=== PATIENT | female | born 1930 | race Hispanic/Latino ===

== ENCOUNTER 2016-11-01 10:27 | Outpatient (CLI) | payer MEDICARE ==
--- NOTE | 2016-11-01 14:43 | Mammography Report ---
BONE DEXA:11/01/16 10:27:00 CLINICAL: Postmenopausal. No comparison. TECHNIQUE: Two site bone DEXA performed on an Hologic scanner. FINDINGS: The average BMD of the lumbar spine L1-L4 is 0.901g/cm squared with a T-score of -1.3 and a Z-score of 01 0.5. The average BMD of the left hip is 0.807g/cm squared with a T-score of -1.1 and a Z-score of +1.2. IMPRESSION: WHO classification: Osteopenia with increased fracture risk based on both spine and left hip measurements. RECOMMENDATION: Clinical correlation and routine screening. DEFINITIONS: BMD = Bone Mineral Density T-score = BMD related to mean peak bone mass of young adult (mean expressed in Standard Deviation) Z-score = Age matched BMD expressed in SD World Health Organization (WHO) Diagnostic Criteria Normal T-score > -1 SD Osteopenia T-score between -1 and -2.4 SD Osteoporosis T-score -2.5 SD or below NOTE: BMD is not the only risk factor for fracture. One should also consider factors such as the patient's age, risk of falling, previous osteoporotic fracture, family history of osteoporotic fractures, current smoker, and low body weight. Z-scores are not calculated if >80 years of age.
== END 2016-11-01 10:28 | disposition home or self-care (01) ==
LOC: SPVWC 10:27
PROVIDERS: ATTEND Family Medicine
DX: M85.88 Other specified disorders of bone density and structure, other site (principal); Z78.0 Asymptomatic menopausal state
CPT/HCPCS: 77080

== ENCOUNTER 2019-01-16 11:07 | Outpatient (CLI) | payer MEDICARE ==
--- NOTE | 2019-01-16 15:31 | Mammography Report ---
Bone densitometry. History: AT RISK FOR OSTEOPOROSIS/FALL. Postmenopausal Procedure: Patient scanned with an Hologic DEXA System. Examination was performed of the lumbar spi ne left hip. Comparison: 11/01/2016. Findings: The BMD of the lumbar spine is 0.953 gm/cm2 with a T-score of -1.1. Percent change from previous ex am is +1.9%. The BMD of the total left hip is 0.804 gm/cm2 with a T-score of -1.1. Percent change from previous ex am is -0.3%. Impression: Findings are consistent with osteopenia of the lumbar spine and left hip. Fracture risk i s increased. Signer Name: Maury Bloom MD Signed: 01/16/2019 3:26 PM Workstation Name: [id number]
--- NOTE | 2019-01-16 16:36 | XRay Report ---
CERVICAL SPINE, 3 VIEWS INDICATION: Neck pain. COMPARISON: None. IMPRESSION: Mild osteopenia is evident. There is normal height and alignment of the cervical vertebr al bodies. No evidence for fracture or bone lesion. Disc space height appears preserved. There is mod erate to severe facet arthropathy throughout the cervical region. LUMBOSACRAL SPINE, 3 VIEWS INDICATION: LEG NUMBNESS/LUMBAR PAIN. COMPARISON: None. IMPRESSION: Mild osteopenia is evident. No evidence for fracture, subluxation or bone lesion. There is mild dextrocurvature on the AP view. 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 Signer Name: Amari Segal Jr, MD Signed: 01/16/2019 4:32 PM Workstation Name: [id number]
== END 2019-01-16 11:08 | disposition home or self-care (01) ==
LOC: SPVWC 11:07
PROVIDERS: ATTEND Family Medicine
DX: M51.37 Other intervertebral disc degeneration, lumbosacral region (principal); M43.8X7 Other specified deforming dorsopathies, lumbosacral region; M85.88 Other specified disorders of bone density and structure, other site; Z78.0 Asymptomatic menopausal state; Z91.89 Other specified personal risk factors, not elsewhere classified; W19.XXXA Unspecified fall, initial encounter
CPT/HCPCS: 72040; 72100; 77080

== ENCOUNTER 2021-11-15 12:59 | Outpatient (CLI) | payer MEDICARE ==
--- NOTE | 2021-11-15 17:09 | Mammography Report ---
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 89 years Female COMPARISON: None available. LUMBAR SPINE (L1-L4): - Bone mineral density (BMD) = 0.952 g/cm2. - T-score = -1.2 Change (%) since most recent prior (if available): None available. FEMORAL NECKS: - Neck mean Bone mineral density (BMD) = 0.649 g/cm2. - T-score = -1.8 Change (%) since most recent prior (if available): None available. IMPRESSION: 1. WHO Classification: Osteopenia. Fracture Risk: Increased. BMD Reporting Guidelines (ISCD, 2015) BMD Reporting in Postmenopausal Women and in Men Age 50 and Older - T-scores are preferred. - The WHO densitometric classification is applicable. BMD Reporting in Females Prior to Menopause and in Males Younger Than Age 50 - Z-scores, not T-scores, are preferred. This is particularly important in children. - A Z-score of -2.0 or lower is defined as below the expected range for age, and a Z-score above -2.0 is within the expected range for age. - Osteoporosis cannot be diagnosed in men under age 50 on the basis of BMD alone. - The WHO diagnostic criteria may be applied to women in the menopausal transition. http://www.iscd.org/official-positions/2733-kxsx-hdnlualc-positions-adult/ Signer Name: Dionisio Koroma MD Signed: 11/15/2021 5:05 PM Workstation Name: [id number]
== END 2021-11-15 13:00 | disposition home or self-care (01) ==
LOC: SPVWC 12:59
PROVIDERS: ATTEND Family Medicine
DX: M85.88 Other specified disorders of bone density and structure, other site (principal); M81.0 Age-related osteoporosis without current pathological fracture; M85.9 Disorder of bone density and structure, unspecified
CPT/HCPCS: 77080